=== PATIENT | male | born 1960 | race Caucasian/White ===

== ENCOUNTER 2017-04-22 09:50 | Emergency (ER) | payer OTHER ==
[~2017-04-22] VITALS: Ht 182.9 cm; Wt 93.9 kg
--- NOTE | ~2017-04-22 | EKG ---
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: [id number] : 1960 Requested By: Jefry Walton Order Number: [id number] MD: Bang De La Rosa Measurements Intervals [place] Rate: 72 P: 33 [place]: 175 QRS: -18 QRSD: 86 T: 37 QT: 400 QTc: 438 Interpretive Statements Sinus rhythm Borderline left axis deviation Low voltage, extremity leads Compared to ECG 11/23/2013 10:12:14 No significant change was found Electronically Signed On 04-23-2017 8:48:32 CDT by Bang De La Rosa [email or web address] <ELECTRONICALLY SIGNED> By: Bang De La Rosa MD, [facility] 04/23/17 0848 21 102 Bang De La Rosa MD, [facility] /EPI
[~2017-04-22 09:50] MED LIST: ABILIFY30 MG PO; APAP/CODEINE ELI5 M1 OR; CARBAMAZEPINE100 M3 PO; CYCLOBENZAPRINE10 MG PO; DILANTIN100 MG PO; FLEXERIL PO; GLUCOPHAGE XR500 MG PO; HYDROCODON-ACE1 EAC7 PO; HYDROCODONE-AP1 EAC6 PO; HYDROCODONE-APA1 TA1 PO; IBUPROFEN 600600 M1 PO; KEFLEX500 MG PO; LANTUS100 UNIT/M SUBQ; LITHIUM CARBON300 M3 PO; NEURONTIN 300300 M1 PO; NOHOMEMEDICATIONS; NORCO 5-325 TA1 EAC1 PO; NORCO 5-325 TA1 EACH PO; OXECTA5 MG PO; ZPAK PO
[2017-04-22 10:46] LABS: EOSINOPHILS 2.3 % (0.0-3.0); HEMATOCRIT 44.8 % (42.0-52.0); HEMOGLOBIN 15.6 gm/dL (14.0-18.0); LYMPHOCYTES 28.3 % (24.0-44.0); MCH 33.2 pg (26.0-34.0); MCHC 34.9 g/dL (28.0-37.0); MONOCYTES 9.6 % (1.0-8.0); PLATELET COUNT 259 thou/uL (150-400); POLYS 58.8 % (36.0-66.0); RBC 4.72 mil/uL (4.50-6.00); WBC 6.9 thou/uL (4.0-11.0)
[2017-04-22 10:47] LABS: MANUAL DIFF NO
[2017-04-22 10:57] LABS: CALCIUM 8.6 mg/dL (8.5-10.1); POTASSIUM 3.8 mmol/L (3.5-5.1)
[2017-04-22] MEDS ORDERED: NORCO 5-325 TA1 EACH PO (12:26)
[2017-04-22 12:38] VITALS: BP 119/62
== END 2017-04-22 12:39 | disposition home or self-care (01) ==
LOC: ER 09:50
PROVIDERS: Emergency Medicine
DX: S00.93XA Contusion of unspecified part of head, initial encounter (principal); M54.5 Low back pain; F31.9 Bipolar disorder, unspecified; E11.9 Type 2 diabetes mellitus without complications; F41.9 Anxiety disorder, unspecified; G89.29 Other chronic pain; F17.210 Nicotine dependence, cigarettes, uncomplicated; Z98.890 Other specified postprocedural states; Z86.19 Personal history of other infectious and parasitic diseases; Z88.1 Allergy status to other antibiotic agents; Z88.6 Allergy status to analgesic agent; Z88.8 Allergy status to other drugs, medicaments and biological substances; W11.XXXA Fall on and from ladder, initial encounter; Y93.H3 Activity, building and construction; Y92.89 Other specified places as the place of occurrence of the external cause; Y99.8 Other external cause status

== ENCOUNTER 2017-06-22 12:06 | Emergency (ER) | payer OTHER ==
[~2017-06-22] VITALS: Ht 182.9 cm; Wt 89.8 kg
[2017-06-22 12:41] LABS: ABSOLUTE NEUTROPHILS 4.6 thou/uL (1.4-8.2); BASOPHILS 0.8 % (0.0-2.0); EOSINOPHILS 2.8 % (0.0-3.0); HEMATOCRIT 42.6 % (42.0-52.0); HEMOGLOBIN 15.1 gm/dL (14.0-18.0); LYMPHOCYTES 26.4 % (24.0-44.0); MCH 33.7 pg (26.0-34.0); MCHC 35.5 g/dL (28.0-37.0); MCV 94.9 fL (80.0-100.0); MONOCYTES 8.1 % (1.0-8.0); PLATELET COUNT 272 thou/uL (150-400); POLYS 61.9 % (36.0-66.0); RBC 4.49 mil/uL (4.50-6.00); RDW 13.5 % (10.5-14.5); WBC 7.5 thou/uL (4.0-11.0)
[2017-06-22 12:46] LABS: MANUAL DIFF NO
[2017-06-22 12:49] LABS: CALCIUM 8.4 mg/dL (8.5-10.1); CREATININE 1.3 mg/dL (0.7-1.3); POTASSIUM 4.1 mmol/L (3.5-5.1)
[2017-06-22 12:50] LABS: URINE BILIRUBIN NEGATIVE (Negative); URINE BLOOD 3+ (Negative); URINE COLOR YELLOW; URINE GLUCOSE-RANDOM* 3+ (Negative); URINE KETONES NEGATIVE (Negative); URINE NITRITE NEGATIVE (Negative); URINE PROTEIN (DIPSTICK) NEGATIVE (Negative); URINE UROBILINOGEN 0.2 E.U./dl (0.2-1.0)
[2017-06-22 13:16] LABS: BACTERIA None Seen /HPF (None Seen); CASTS None Seen /LPF (None Seen); CRYSTALS None Seen /LPF (None Seen); SQUAMOUS 4-10 Moderate /LPF (0-3); URINE RBC >20 Many /HPF (0-2); URINE WBC None Seen /HPF (0-5)
[2017-06-22 13:28] VITALS: BP 103/56
== END 2017-06-22 13:30 | disposition home or self-care (01) ==
LOC: ER 12:06
PROVIDERS: Emergency Medicine
DX: R10.31 Right lower quadrant pain (principal); R31.9 Hematuria, unspecified; F31.9 Bipolar disorder, unspecified; E11.9 Type 2 diabetes mellitus without complications; G89.29 Other chronic pain; F41.9 Anxiety disorder, unspecified; F17.210 Nicotine dependence, cigarettes, uncomplicated; Z86.19 Personal history of other infectious and parasitic diseases; Z88.0 Allergy status to penicillin; Z88.6 Allergy status to analgesic agent; Z79.4 Long term (current) use of insulin

== ENCOUNTER 2017-12-03 12:15 | Emergency (ER) | payer OTHER ==
[~2017-12-03] VITALS: Ht 182.9 cm; Wt 93.9 kg
--- NOTE | ~2017-12-03 | EKG ---
[address] [address] ELECTROCARDIOGRAM REPORT Name: LUCY CHANEY [facility] [id number] Admission: 12/03/17 Attend Phys: Discharge: 12/03/17 Date of : 58 Report #: [id number] THIS REPORT FOR: //name// [facility] ED Test Date: 2017-12-03 Test Time: 13:23:45 Pat Name: LUCY CHANEY Department: Room: Gender: M Manager Inside: [email or web address] : 1960 Requested By: Nadeem Garcia Order Number: [id number] MD: Spencer Salvador Measurements Intervals [place] Rate: 84 P: 44 [place]: 176 QRS: 17 QRSD: 86 T: 42 QT: 364 QTc: 431 Interpretive Statements Sinus rhythm Low voltage, extremity leads Compared to ECG 04/22/2017 10:22:52 No significant changes Electronically Signed On 12-03-2017 19:24:46 [employer]OCK [employer] by Spencer Salvador [email or web address] <ELECTRONICALLY SIGNED> By: Spencer Salvador MD 12/03/17 1924 1323 22 Spencer Salvador MD /WENDY
[~2017-12-03 12:15] MED LIST changes: +CYCLOBENZAPRINE5 MG PO; +LEVEMIR SUBQ; +METFORMIN HCL500 MG PO; +NAPROSYN500 M1 PO
[2017-12-03 13:12] LABS: ABSOLUTE NEUTROPHILS 5.7 thou/uL (1.4-8.2); EOSINOPHILS 2.2 % (0.0-3.0); HEMOGLOBIN 16.1 gm/dL (14.0-18.0); LYMPHOCYTES 23.5 % (24.0-44.0); MCH 32.9 pg (26.0-34.0); MCHC 34.9 g/dL (28.0-37.0); MCV 94.1 fL (80.0-100.0); MONOCYTES 7.7 % (1.0-8.0); PLATELET COUNT 292 thou/uL (150-400); POLYS 65.6 % (36.0-66.0); RBC 4.89 mil/uL (4.50-6.00); RDW 13.1 % (10.5-14.5); WBC 8.7 thou/uL (4.0-11.0)
[2017-12-03 13:29] LABS: ANION GAP 9 mmol/L (7-16); BUN 16 mg/dL (7-18); CALCIUM 9.4 mg/dL (8.5-10.1); CHLORIDE 101 mmol/L (98-107); CO2 27 mmol/L (21-32); CREATININE 1.2 mg/dL (0.7-1.3); GLUCOSE 176 mg/dL (74-106); POTASSIUM 4.1 mmol/L (3.5-5.1); SODIUM 137 mmol/L (136-145)
[2017-12-03 13:33] LABS: ALBUMIN 3.8 g/dL (3.4-5.0); LIPASE 131 U/L (73-393); SGOT 20 U/L (15-37); SGPT 37 U/L (30-65); TOTAL BILIRUBIN 0.8 mg/dL (<0.1-1.0); TOTAL PROTEIN 7.5 g/dL (6.4-8.2); TROPONIN-I < 0.04 ng/mL (<0.06)
[2017-12-03] MEDS ORDERED: PEPCID20 MG PO (14:06)
[2017-12-03] MEDS ORDERED: ZOFRAN ODT4 M1 PO (14:10)
[2018-01-20] MEDS ORDERED: ABILIFY10 MG PO (13:40)
[2018-01-20] MEDS ORDERED: BACTRIM DS TAB1 EACH PO (15:10)
[2018-02-04] MEDS ORDERED: COLACE 100 MG100 MG PO (18:46)
[2018-02-04] MEDS ORDERED: HYDROCODON-ACE1 EAC7 PO (18:46)
== END 2017-12-03 14:14 | disposition home or self-care (01) ==
LOC: ER 12:15
PROVIDERS: Physician Assistant
DX: K21.9 Gastro-esophageal reflux disease without esophagitis (principal); E11.9 Type 2 diabetes mellitus without complications; G89.29 Other chronic pain; M54.9 Dorsalgia, unspecified; F31.9 Bipolar disorder, unspecified; F17.210 Nicotine dependence, cigarettes, uncomplicated; Z88.0 Allergy status to penicillin; Z88.8 Allergy status to other drugs, medicaments and biological substances

== ENCOUNTER 2017-12-29 10:05 | Emergency (ER) | payer OTHER ==
[~2017-12-29] VITALS: Ht 182.9 cm; Wt 94.3 kg
[~2017-12-29 10:05] MED LIST changes: +PEPCID20 MG PO; +ZOFRAN ODT4 M1 PO
[2017-12-29] MEDS ORDERED: ZOLOFT25 MG PO (10:20)
[2017-12-29 10:53] LABS: ABSOLUTE NEUTROPHILS 5.8 thou/uL (1.4-8.2); BASOPHILS 0.9 % (0.0-2.0); EOSINOPHILS 2.7 % (0.0-3.0); HEMATOCRIT 48.3 % (42.0-52.0); HEMOGLOBIN 17.1 gm/dL (14.0-18.0); LYMPHOCYTES 21.9 % (24.0-44.0); MCHC 35.4 g/dL (28.0-37.0); MCV 93.3 fL (80.0-100.0); MONOCYTES 7.9 % (1.0-8.0); PLATELET COUNT 303 thou/uL (150-400); POLYS 66.6 % (36.0-66.0); RBC 5.17 mil/uL (4.50-6.00); WBC 8.7 thou/uL (4.0-11.0)
[2017-12-29 11:09] LABS: POTASSIUM 3.9 mmol/L (3.5-5.1)
[2017-12-29 11:14] LABS: ALBUMIN 3.9 g/dL (3.4-5.0); DIRECT BILIRUBIN 0.1 mg/dL (<0.1-0.3); TOTAL BILIRUBIN 0.9 mg/dL (<0.1-1.0); TOTAL PROTEIN 7.9 g/dL (6.4-8.2)
[2017-12-29 11:52] LABS: URINE BILIRUBIN NEGATIVE (Negative); URINE BLOOD TRACE (Negative); URINE CLARITY CLEAR; URINE COLOR YELLOW; URINE GLUCOSE-RANDOM* NEGATIVE (Negative); URINE KETONES NEGATIVE (Negative); URINE LEUKOCYTES NEGATIVE (Negative); URINE NITRITE NEGATIVE (Negative); URINE PROTEIN (DIPSTICK) NEGATIVE (Negative); URINE SPECIFIC GRAVITY 1.015 (1.005-1.035); URINE UROBILINOGEN 0.2 E.U./dl (0.2-1.0)
[2017-12-29] MEDS ORDERED: NORCO 5-325 TA1 EACH PO (12:13)
[2018-01-20] MEDS ORDERED: ABILIFY10 MG PO (13:40)
[2018-01-20] MEDS ORDERED: BACTRIM DS TAB1 EACH PO (15:10)
[2018-02-04] MEDS ORDERED: HYDROCODON-ACE1 EAC7 PO (18:46)
[2018-02-04] MEDS ORDERED: COLACE 100 MG100 MG PO (18:46)
== END 2017-12-29 12:26 | disposition home or self-care (01) ==
LOC: ER 10:05
PROVIDERS: Nurse Practitioner
DX: R10.10 Upper abdominal pain, unspecified (principal); E11.9 Type 2 diabetes mellitus without complications; G89.29 Other chronic pain; M54.9 Dorsalgia, unspecified; F17.210 Nicotine dependence, cigarettes, uncomplicated; F31.9 Bipolar disorder, unspecified; Z88.0 Allergy status to penicillin; Z88.6 Allergy status to analgesic agent; Z88.8 Allergy status to other drugs, medicaments and biological substances; Z79.4 Long term (current) use of insulin

== ENCOUNTER 2018-03-19 10:30 | Emergency (ER) | payer OTHER ==
[~2018-03-19] VITALS: Ht 182.9 cm; Wt 93.9 kg
[~2018-03-19 10:30] MED LIST changes: +ABILIFY10 MG PO; +BACTRIM DS TAB1 EACH PO; +COLACE 100 MG100 MG PO; +ZOLOFT25 MG PO
[2018-03-19 11:10] LABS: URINE BILIRUBIN NEGATIVE (Negative); URINE BLOOD 3+ (Negative); URINE CLARITY CLEAR; URINE COLOR YELLOW; URINE GLUCOSE-RANDOM* NEGATIVE (Negative); URINE KETONES NEGATIVE (Negative); URINE LEUKOCYTES-REFLEX NEGATIVE (Negative); URINE NITRITE-REFLEX NEGATIVE (Negative); URINE PROTEIN (DIPSTICK) NEGATIVE (Negative); URINE UROBILINOGEN 0.2 E.U./dl (0.2-1.0)
[2018-03-19 11:24] LABS: AMORPHOUS URATES Moderate /LPF (None Seen); CASTS None Seen /LPF (None Seen); CRYSTALS None Seen /LPF (None Seen); SQUAMOUS 4-10 Moderate /LPF (0-3); URINE WBC-REFLEX 0-5 Rare /HPF (0-5)
[2018-03-19 11:25] LABS: BACTERIA-REFLEX 1-9 Few /HPF (None Seen); URINE RBC >20 Many /HPF (0-2)
[2018-03-19 11:39] LABS: ABSOLUTE NEUTROPHILS 3.1 thou/uL (1.4-8.2); BASOPHILS 0.9 % (0.0-2.0); EOSINOPHILS 2.6 % (0.0-3.0); HEMATOCRIT 44.1 % (42.0-52.0); HEMOGLOBIN 15.4 gm/dL (14.0-18.0); LYMPHOCYTES 29.1 % (24.0-44.0); MCH 32.9 pg (26.0-34.0); MCV 94.2 fL (80.0-100.0); MONOCYTES 7.7 % (1.0-8.0); PLATELET COUNT 300 thou/uL (150-400); POLYS 59.7 % (36.0-66.0); RBC 4.68 mil/uL (4.50-6.00); RDW 14.4 % (10.5-14.5); WBC 5.1 thou/uL (4.0-11.0)
[2018-03-19 11:48] LABS: CALCIUM 8.7 mg/dL (8.5-10.1); POTASSIUM 4.3 mmol/L (3.5-5.1)
[2018-03-19 11:54] LABS: ALBUMIN 3.8 g/dL (3.4-5.0); TOTAL BILIRUBIN 0.7 mg/dL (<0.1-1.0); TOTAL PROTEIN 7.4 g/dL (6.4-8.2)
[2018-03-19] MEDS ORDERED: HYDROCODONE-AP1 EAC6 PO (13:03)
[2018-03-19] MEDS ORDERED: BACTRIM DS TAB1 EACH PO (13:03)
[2018-03-19 13:24] VITALS: BP 127/84
== END 2018-03-19 13:25 | disposition home or self-care (01) ==
LOC: ER 10:30
PROVIDERS: Physician Assistant
DX: K43.9 Ventral hernia without obstruction or gangrene (principal); N39.0 Urinary tract infection, site not specified; F31.9 Bipolar disorder, unspecified; E11.9 Type 2 diabetes mellitus without complications; G89.29 Other chronic pain; M54.9 Dorsalgia, unspecified; F41.9 Anxiety disorder, unspecified; F17.210 Nicotine dependence, cigarettes, uncomplicated; Z88.0 Allergy status to penicillin; Z88.6 Allergy status to analgesic agent; Z88.8 Allergy status to other drugs, medicaments and biological substances

== ENCOUNTER 2019-11-30 09:11 | Emergency (ER) | payer OTHER ==
[~2019-11-30] VITALS: Ht 182.9 cm; Wt 93.9 kg
[~2019-11-30 09:11] MED LIST changes: +ACETAMINOPHEN-1 EAC1 PO; +CIPRO500 M1 PO; +CIPROFLOXACIN500 M1 PO; +CITRATE OF MAG296 ML PO; +FLOMAX0.4 MG PO; +HYDROCODON-ACE1 EA12 PO; +HYDROCODON-ACE1 EAC8 PO; +IBUPROFEN 800800 M1 PO; +KEFLEX500 M1 PO; +LEVAQUIN 500 M500 M3 PO; -LEVEMIR SUBQ; +LEVEMIR100 UNIT/2 SUBQ; +LEVSIN0.125 MG PO; +MELATONIN10 M2 PO; +METFORMIN HCL500 M3 PO; +NORCO 7.5-3251 EACH PO; +NOVOLOG100 UNIT/1 SUBQ; +OXYBUTYNIN 5 MG5 M2 PO; +PERCOCET 7.5-31 EAC1 PO; +PHENAZOPYRIDIN200 M2 PO; +PROTONIX40 M1 PO; +PYRIDIUM100 M1 PO; +PYRIDIUM200 MG PO; +TUMS PO; +ZOFRAN ODT4 MG DISSOLVE
[2019-11-30 09:54] LABS: ABSOLUTE NEUTROPHILS 5.5 thou/uL (1.4-8.2); EOSINOPHILS 3.6 % (0.0-3.0); HEMATOCRIT 44.7 % (42.0-52.0); HEMOGLOBIN 15.2 gm/dL (14.0-18.0); LYMPHOCYTES 21.2 % (24.0-44.0); MCH 32.1 pg (26.0-34.0); MCHC 34.1 g/dL (28.0-37.0); MCV 94.2 fL (80.0-100.0); MONOCYTES 7.8 % (1.0-8.0); PLATELET COUNT 303 thou/uL (150-400); POLYS 66.4 % (36.0-66.0); RBC 4.74 mil/uL (4.50-6.00); RDW 13.3 % (10.5-14.5); WBC 8.2 thou/uL (4.0-11.0)
[2019-11-30 10:20] LABS: CALCIUM 9.1 mg/dL (8.5-10.1); CREATININE 1.1 mg/dL (0.7-1.3); POTASSIUM 4.3 mmol/L (3.5-5.1)
[2019-11-30 10:26] LABS: ALBUMIN 3.7 g/dL (3.4-5.0); TOTAL BILIRUBIN 0.6 mg/dL (<0.1-1.0); TOTAL PROTEIN 7.7 g/dL (6.4-8.2)
[2019-11-30 10:57] LABS: URINE BILIRUBIN NEGATIVE (Negative); URINE BLOOD 3+ (Negative); URINE COLOR YELLOW; URINE GLUCOSE-RANDOM* 2+ (Negative); URINE KETONES NEGATIVE (Negative); URINE LEUKOCYTES-REFLEX TRACE (Negative); URINE NITRITE-REFLEX NEGATIVE (Negative); URINE PROTEIN (DIPSTICK) TRACE (Negative); URINE SPECIFIC GRAVITY <= 1.005 (1.005-1.035); URINE UROBILINOGEN 0.2 E.U./dl (0.2-1.0)
[2019-11-30 10:59] LABS: URINE CLARITY HAZY
[2019-11-30] MEDS ORDERED: ZOFRAN 4 MG ORAL4 MG PO (11:08)
[2019-11-30 11:33] LABS: CASTS None Seen /LPF (None Seen); CRYSTALS None Seen /LPF (None Seen); SQUAMOUS 0-3 Few /LPF (0-3)
[2019-11-30 11:34] LABS: URINE RBC 3-10 Few /HPF (0-2); URINE WBC-REFLEX 0-5 Rare /HPF (0-5)
[2019-11-30 11:36] LABS: BACTERIA-REFLEX 1-9 Few /HPF (None Seen)
[2019-11-30] MEDS ORDERED: KEFLEX500 M1 PO (11:46)
[2019-11-30 11:50] VITALS: BP 134/71
== END 2019-11-30 11:53 | disposition home or self-care (01) ==
LOC: ER 09:11
PROVIDERS: Student in an Organized Health Care Education/Training Program
DX: N39.0 Urinary tract infection, site not specified (principal); M54.2 Cervicalgia; R07.81 Pleurodynia; I10 Essential (primary) hypertension; E11.9 Type 2 diabetes mellitus without complications; M54.9 Dorsalgia, unspecified; G89.29 Other chronic pain; F31.9 Bipolar disorder, unspecified; F41.9 Anxiety disorder, unspecified; F17.210 Nicotine dependence, cigarettes, uncomplicated; Z87.442 Personal history of urinary calculi; Z88.0 Allergy status to penicillin; Z88.6 Allergy status to analgesic agent

== ENCOUNTER 2021-05-12 08:54 | Emergency (ER) | payer OTHER ==
[~2021-05-12] VITALS: Ht 182.9 cm; Wt 94.3 kg
[~2021-05-12 08:54] MED LIST changes: +ASPIR 8181 MG PO; +BACTRIM DS TAB1 EAC1 PO; +NORCO5 PO; +PERCOCET 5-3251 EACH PO; +ZOFRAN 4 MG ORAL4 MG PO
[2021-05-12 09:29] LABS: ABSOLUTE NEUTROPHILS 4.6 thou/uL (1.4-8.2); BASOPHILS 0.9 % (0.0-2.0); HEMATOCRIT 36.3 % (42.0-52.0); HEMOGLOBIN 12.7 gm/dL (14.0-18.0); LYMPHOCYTES 16.8 % (24.0-44.0); MCH 33.3 pg (26.0-34.0); MCHC 34.9 g/dL (28.0-37.0); MCV 95.5 fL (80.0-100.0); MONOCYTES 7.7 % (1.0-8.0); PLATELET COUNT 313 thou/uL (150-400); POLYS 71.6 % (36.0-66.0); RDW 14.9 % (10.5-14.5); WBC 6.5 thou/uL (4.0-11.0)
[2021-05-12 09:45] LABS: CALCIUM 7.1 mg/dL (8.5-10.1); CREATININE 1.2 mg/dL (0.7-1.3); POTASSIUM 4.1 mmol/L (3.5-5.1)
[2021-05-12 09:50] LABS: ALBUMIN 3.2 g/dL (3.4-5.0); TOTAL BILIRUBIN 0.3 mg/dL (0.2-1.0); TOTAL PROTEIN 6.3 g/dL (6.4-8.2)
[2021-05-12 10:59] LABS: URINE BILIRUBIN NEGATIVE (Negative); URINE BLOOD TRACE (Negative); URINE COLOR YELLOW; URINE GLUCOSE-RANDOM* NEGATIVE (Negative); URINE KETONES NEGATIVE (Negative); URINE PROTEIN (DIPSTICK) TRACE (Negative); URINE UROBILINOGEN 0.2 E.U./dl (0.2-1.0)
[2021-05-12 11:10] LABS: URINE CLARITY CLOUDY; URINE LEUKOCYTES-REFLEX 3+ (Negative); URINE NITRITE-REFLEX POSITIVE (Negative)
[2021-05-12 11:20] LABS: AMORPHOUS PHOSPHATES Many /LPF (None Seen); BACTERIA-REFLEX >30 Many /HPF (None Seen); CASTS None Seen /LPF (None Seen); SQUAMOUS 0-3 Few /LPF (0-3); TRIPLE PHOSPHATE CRYSTALS 4-10 Moderate /LPF (None Seen); URINE RBC 1-2 Rare /HPF (NONE SEEN)
[2021-05-12] MEDS ORDERED: NORCO5 PO (11:35)
[2021-05-12] MEDS ORDERED: LEVAQUIN 500 M500 MG PO (11:35)
[2021-05-12 11:50] VITALS: BP 104/58
--- NOTE | 2021-05-12 12:11 | EKG ---
[place] [address] [facility] 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: SRINIVAS : 1960 Requested By: Lasha Angulo Order Number: [id number] MD: Vincent Kurtz Measurements Intervals [place] Rate: 73 P: 52 [place]: 171 QRS: 15 QRSD: 84 T: 56 QT: 397 QTc: 438 Interpretive Statements Sinus rhythm Low voltage, extremity leads Baseline wander in lead(s) V6 Compared to ECG 12/03/2017 13:23:45 No significant changes Electronically Signed On 05-12-2021 12:10:59 CDT by Vincent Kurtz [email or web address] <ELECTRONICALLY SIGNED> By: Vincent Kurtz MD, [facility] 05/12/21 1210 0 0 Vincent Kurtz MD, FAC /EPI
== END 2021-05-12 11:50 | disposition home or self-care (01) ==
LOC: ER 08:54
PROVIDERS: Emergency Medicine
DX: N39.0 Urinary tract infection, site not specified (principal); E11.9 Type 2 diabetes mellitus without complications; F32.9 Major depressive disorder, single episode, unspecified; F41.9 Anxiety disorder, unspecified; I10 Essential (primary) hypertension; F17.210 Nicotine dependence, cigarettes, uncomplicated; Z90.49 Acquired absence of other specified parts of digestive tract; Z79.2 Long term (current) use of antibiotics; Z79.4 Long term (current) use of insulin; Z79.899 Other long term (current) drug therapy; Z88.0 Allergy status to penicillin; Z88.1 Allergy status to other antibiotic agents; Z88.6 Allergy status to analgesic agent; W19.XXXA Unspecified fall, initial encounter; Y93.89 Activity, other specified; Y92.89 Other specified places as the place of occurrence of the external cause; Y99.8 Other external cause status

== ENCOUNTER 2021-05-30 14:11 | Emergency (ER) | payer OTHER ==
[~2021-05-30] VITALS: Ht 182.9 cm; Wt 94.3 kg
[~2021-05-30 14:11] MED LIST changes: +LEVAQUIN 500 M500 MG PO
[2021-05-30] MEDS ORDERED: TIZANIDINE HCL4 M2 PO (14:17)
[2021-05-30] MEDS ORDERED: MELOXICAM7.5 MG PO (14:18)
[2021-05-30 14:56] LABS: ABSOLUTE NEUTROPHILS 4.9 thou/uL (1.4-8.2); EOSINOPHILS 1.8 % (0.0-3.0); HEMATOCRIT 41.1 % (42.0-52.0); HEMOGLOBIN 14.2 gm/dL (14.0-18.0); MCHC 34.7 g/dL (28.0-37.0); MCV 95.3 fL (80.0-100.0); MONOCYTES 9.7 % (1.0-8.0); PLATELET COUNT 279 thou/uL (150-400); POLYS 70.5 % (36.0-66.0); RBC 4.31 mil/uL (4.50-6.00); RDW 14.5 % (10.5-14.5); WBC 6.9 thou/uL (4.0-11.0)
[2021-05-30 15:07] LABS: CALCIUM 9.1 mg/dL (8.5-10.1); CREATININE 1.6 mg/dL (0.7-1.3); POTASSIUM 3.6 mmol/L (3.5-5.1)
[2021-05-30 15:13] LABS: ALBUMIN 4.2 g/dL (3.4-5.0); TOTAL BILIRUBIN 0.6 mg/dL (0.2-1.0); TOTAL PROTEIN 8.1 g/dL (6.4-8.2)
[2021-05-30] MEDS ORDERED: IBUPROFEN 600600 M1 PO (16:32)
[2021-05-30 16:51] VITALS: BP 123/74
== END 2021-05-30 16:51 | disposition home or self-care (01) ==
LOC: ER 14:11
PROVIDERS: Student in an Organized Health Care Education/Training Program
DX: M54.5 Low back pain (principal); E11.9 Type 2 diabetes mellitus without complications; F32.9 Major depressive disorder, single episode, unspecified; F41.9 Anxiety disorder, unspecified; F17.210 Nicotine dependence, cigarettes, uncomplicated; I10 Essential (primary) hypertension; Z90.49 Acquired absence of other specified parts of digestive tract; Z79.4 Long term (current) use of insulin; Z79.899 Other long term (current) drug therapy; Z88.0 Allergy status to penicillin; Z88.6 Allergy status to analgesic agent; Z88.5 Allergy status to narcotic agent; W11.XXXA Fall on and from ladder, initial encounter; Y93.89 Activity, other specified; Y92.89 Other specified places as the place of occurrence of the external cause; Y99.8 Other external cause status